=== PATIENT | male | born 1975 | race Caucasian/White ===

== ENCOUNTER 2018-09-23 21:51 | Emergency (ER) | payer BC ==
[~2018-09-23] VITALS: Ht 172.7 cm; Wt 100.0 kg
[2018-09-23] MEDS ORDERED: KETOROLAC 15 MG INJ IV STA (21:52)
[2018-09-23] MEDS ORDERED: LORAZEPAM 2 MG INJ IV STA (21:52)
[2018-09-23 21:55] VITALS: Ht 172.7 cm; Wt 100.0 kg
[2018-09-23] MEDS ORDERED: DIAZEPAM 5 MG/ML SYG IV ONE (22:30)
[2018-09-23] MEDS ORDERED: SOD CHLORIDE 0.9% 1,000 ML IV STA (23:54)
[2018-09-24] MEDS ORDERED: DIAZEPAM 5 MG/ML SYG IV ONE
[2018-09-24] MEDS ORDERED: FOLIC ACID 1 MG TAB PO ONE
[2018-09-24] MEDS ORDERED: THIAMINE 100 MG TAB PO ONE
--- NOTE | 2018-09-24 00:01 | ERD ---
ER Documentation Chief Complaint Chief Complaint BIB RA78 for STEMI run. c/o chest pains started tonight HPI 42-year-old transgender patient female to male who presents to the emergency room as possible STEMI run. Patient initially gives a convoluted history however further conversation reveals that the patient has been trying to get into [facility] for alcohol related issues. The patient was recently seen at [facility] yesterday for similar and related symptoms and prescribed Librium. The patient states that he became very anxious while in his car and started to have chest tightness, cramping of his hands and perioral paresthesia. Patient states that he took a dose of the Librium and felt worse and called 911. He denies any pleuritic pain, shortness of breath, history of DVT. No cardiac history. Patient does describe a history of right bundle branch block. No fevers chills or cough. No suicidal or homicidal ideation. ROS All systems reviewed and are negative except as per history of present illness. PMhx/Soc Hx Alcohol Use: Yes Hx Substance Use: No Hx Tobacco Use: No Smoking Status: Never smoker FmHx Family History: No diabetes Physical Exam Vitals Vital Signs Date Temp Pulse Resp B/P (MAP) Pulse Ox O2 O2 Flow FiO2 Time Delivery Rate 09/23/18 105 20 135/98 95 Nasal 22:03 (110) Cannula 09/23/18 Nasal 2 21:58 Cannula 09/23/18 97.9 125 30 133/87 100 21:55 (102) Physical Exam General: Extremely anxious, hyperventilating Head: Normocephalic, atraumatic. Eyes: Pupils equally reactive, EOM intact ENT: Moist mucous membranes Neck: Supple, no lymphadenopathy Respiratory: Hyperventilating, lungs clear Cardiovascular: Slight tachycardia, no murmurs, rubs, or gallops Abdominal: Soft, non-tender, non-distended, no peritoneal signs : Deferred MSK: No edema, no unilateral swelling, 5/5 strength Neurologic: Alert and oriented, moving all extremities, normal speech, no focal weakness, no cerebellar signs, mild tremor Psych: Extremely anxious Result Diagram: 09/23/18215209/23/182152 Results 24 hrs Laboratory Tests Test 09/23/18 21:53 White Blood Count 6.6 10^3/ul Red Blood Count 4.75 10^6/ul Hemoglobin 14.6 g/dl Hematocrit 42.7 % Mean Corpuscular Volume 89.9 fl Mean Corpuscular Hemoglobin 30.7 pg Mean Corpuscular Hemoglobin Concent 34.2 g/dl Red Cell Distribution Width 14.2 % Platelet Count 142 10^3/UL Mean Platelet Volume 12.6 fl Immature Granulocytes % 0.500 % Neutrophils % 59.0 % Lymphocytes % 28.3 % Monocytes % 9.7 % Eosinophils % 1.7 % Basophils % 0.8 % Nucleated Red Blood Cells % 0.0 /100WBC Immature Granulocytes # 0.030 10^3/ul Neutrophils # 3.9 10^3/ul Lymphocytes # 1.9 10^3/ul Monocytes # 0.6 10^3/ul Eosinophils # 0.1 10^3/ul Basophils # 0.1 10^3/ul Nucleated Red Blood Cells # 0.0 10^3/ul Sodium Level 143 mmol/L Potassium Level 3.7 mmol/L Chloride Level 102 mmol/L Carbon Dioxide Level 24 mmol/L Anion Gap 17 Blood Urea Nitrogen 10 mg/dl Creatinine 0.75 mg/dl Est Glomerular Filtrat Rate mL/min > 60 mL/min Glucose Level 115 mg/dl Calcium Level 8.8 mg/dl Troponin I < 0.012 ng/ml Current Medications Medications Dose Sig/Abida Start Time Status Last (Trade) Ordered Route PRN Stop Time Admin Dose Reason Admin Lorazepam 1 mg ONCE STAT 09/23/18 DC (Ativan) IV 21:52 09/23/18 21:53 Ketorolac 15 mg ONCE STAT 09/23/18 DC 09/23/18 Tromethamine IV 21:52 22:07 (Toradol) 09/23/18 21:53 Diazepam 5 mg ONCE ONCE 09/23/18 DC 09/23/18 (Valium) IV 22:30 22:39 09/23/18 22:31 Sodium 1,000 ml @ Q1H STAT 09/23/18 Chloride 1,000 mls/hr IV 23:54 09/24/18 00:53 Thiamine 100 mg ONCE ONCE 09/24/18 HCl PO 00:00 (Vitamin B1) 09/24/18 00:01 Folic Acid 1 mg ONCE ONCE 09/24/18 (Folic Acid) PO 00:00 09/24/18 00:01 Diazepam 5 mg ONCE ONCE 3/13/19 (Valium) IV 00:00 09/24/18 00:01 Procedures/MDM EKG, MONITORS, & DIAGNOSTIC IMAGING: EKG: I reviewed and interpreted a 12-lead EKG. Rhythm: Normal sinus rhythm ST Changes: No contiguous ST segment elevations T waves: No contiguous T wave inversions Impression: No evidence of acute cardiac ischemia EKG: I reviewed and interpreted a 12-lead EKG. Rhythm: Normal sinus rhythm ST Changes: No contiguous ST segment elevations T waves: No contiguous T wave inversions Impression: No evidence of acute cardiac ischemia Chest x-ray: I reviewed and interpreted a 1 view of the chest Mediastinum: No enlargement Cardiac silhouette: No cardiomegaly Airspace: Clear lung johnson bilaterally without evidence of pneumothorax Bones: No evidence of fracture LAB INTERPRETATION: I reviewed the laboratory testing and it shows no evidence of acute process MEDICAL DECISION MAKING: The patient was initially called as possible cardiac etiology however based on further history, clinical examination this is most consistent with anxiety reaction, atypical chest pain likely secondary to hyperventilation syndrome and carpal pedal spasms. Patient also likely has a small element of alcohol withdrawal as well. The patient's chest pain is not consistent with cardiac etiology. The patient has no significant risk factors for cardiac etiology and has a nonischemic EKG. I reviewed the field EKGs that again are inconsistent with ST elevation myocardial infarction. Despite the patient's very low clinical concern for cardiac etiology given the initial concern and EKG and troponin will be ordered in the emergency room setting ER COURSE: * The patient is responded nicely to benzodiazepine, nonsteroidal anti- inflammatory and IV fluids * the patient is requesting to speak to a social services. The patient is homeless And does not wish to be discharged without speaking to a social services. * At this point the patient has been given IV fluids, benzodiazepine x2. The patient is currently prescribed Librium and has had in his possession but does not wish to take it any further. The patient understands the risk benefits alternatives and does not warrant hospitalization for alcohol withdrawal given only mild symptoms. The patient received multivitamins and has no signs or symptoms that would warrant hospitalization at this time * The patient has been medically cleared and does not exhibit a danger to himself or others at this time. The patient can be discharged to the waiting room to be evaluated by our social services in the morning for homeless discharge and placement to detox centers as needed. CONSULTATION: None DISPOSITION PLAN: The patient does not have an identifiable emergent medical condition that warrants inpatient hospitalization at this time. The patient is deemed safe for discharge with outpatient follow-up. We discussed follow up with the patient's primary care doctor within 24 to 48 hours as needed. We also discussed return to the emergency room for worsening symptoms or worsening condition. Outpatient referral: None required Discharge Medications: Continue Librium as tolerated Departure Diagnosis: Primary Impression: Anxiety reaction Additional Impressions: Alcohol abuse Atypical chest pain Alcohol withdrawal Complication of substance-induced condition: uncomplicated Qualified Codes: F10.230 - Alcohol dependence with withdrawal, uncomplicated Condition: Stable Patient Instructions: Alcohol Withdrawal, Anxiety Reaction Referrals: COMMUNITY CLINICS YOU HAVE RECEIVED A MEDICAL SCREENING EXAM AND THE RESULTS INDICATE THAT YOU DO NOT HAVE A CONDITION THAT REQUIRES URGENT TREATMENT IN THE EMERGENCY DEPARTMENT. FURTHER EVALUATION AND TREATMENT OF YOUR CONDITION CAN WAIT UNTIL YOU ARE SEEN IN YOUR DOCTORS OFFICE WITHIN THE NEXT 1-2 DAYS. IT IS YOUR RESPONSIBILITY TO MAKE AN APPOINTMENT FOR FOLOW-UP CARE. IF YOU HAVE A PRIMARY DOCTOR --you should call your primary doctor and schedule an appointment IF YOU DO NOT HAVE A PRIMARY DOCTOR YOU CAN CALL OUR PHYSICIAN REFERRAL HOTLINE AT IF YOU CAN NOT AFFORD TO SEE A PHYSICIAN YOU CAN CHOSE FROM THE FOLLOWING [facility] [address] [facility]. [facility] [address] [facility]. [facility] [address] [facility] [address] [facility] [facility] [address] [facility]. [facility]. [address] [facility]. [facility] YOU HAVE RECEIVED A MEDICAL SCREENING EXAM AND THE RESULTS INDICATE THAT YOU DO NOT HAVE A CONDITION THAT REQUIRES URGENT TREATMENT IN THE EMERGENCY DEPARTMENT. FURTHER EVALUATION AND TREATMENT OF YOUR CONDITION CAN WAIT UNTIL YOU ARE SEEN IN YOUR DOCTORS OFFICE WITHIN THE NEXT 1-2 DAYS. IT IS YOUR RESPONSIBILITY TO MAKE AN APPOINTMENT FOR FOLOW-UP CARE. IF YOU HAVE A PRIMARY DOCTOR --you should call your primary doctor and schedule and appointment IF YOU DO NOT HAVE A PRIMARY DOCTOR YOU CAN CALL OUR PHYSICIAN REFERRAL HOTLINE AT . IF YOU CAN NOT AFFORD TO SEE A PHYSICIAN YOU CAN CHOSE FROM THE FOLLOWING [facility] INSTITUTIONS: [facility] [address] [place] [address] [facility] [address] [place] [address] [facility] [address] [place] [address] Additional Instructions: Call your primary care doctor TOMORROW for an appointment during the next 1 WEEK.Tell the special education secretary that you were referred from this facility.See the doctor sooner or return here if your condition worsens before your appointment time. MARVA RAZO MD Sep 24, 2018 00:01
[2018-09-24 05:16] VITALS: BP 149/100; PULSE 92; RESP 20
== END 2018-09-24 05:19 | disposition home or self-care (01) ==
LOC: E/R 21:51
DX: F41.9 Anxiety disorder, unspecified (principal); F10.10 Alcohol abuse, uncomplicated; R07.89 Other chest pain; R40.2142 Coma scale, eyes open, spontaneous, at arrival to emergency department; R40.2362 Coma scale, best motor response, obeys commands, at arrival to emergency department; R40.2252 Coma scale, best verbal response, oriented, at arrival to emergency department
CPT/HCPCS: 36415; 71045; 80048; 84484; 85025; 93005; 96374; 96375; 96376; 99285; J1885; J3360; J7030; Z7610; J2060